=== PATIENT | male | born 1970 | race Two or more races ===

== ENCOUNTER 2024-06-29 10:42 | Outpatient (RCR) | payer MEDICAID, SELFPAY ==
--- NOTE | 2024-06-29 12:50 | PTNOTE_ITS ---
PT OP Initial Eval Patient Information Outpatient Physical Therapy Treatment Date: 06/29/24 Visit Reasons: CHRONIC LEFT SHOULDER PAIN Medical Diagnosis: [id number] Treatment Dx #1: Left Shoulder Pain Treatment Dx #2: Left Shoulder Mobility Deficits Start of Care: 06/29/24 Date of Onset: 3 years ago Smoking Status Smoking Status: Never smoker Initial Assessment Subjective: Pt is a 54 y/o male reports of chronic left shoulder pain (09/10) ~ 3 years ago. Pt's past MRI showed severe tearing of the labrum. Pt has limitation with ADLs, lifting, chores, self care, cooking, cleaning, and performing recreational activities. Objective: Left Shoulder AROM: all motions are WFL with end range pain in all plane Left Shoulder MMTs: grossly 3-/5 Left Scapula MMTs: grossly 3-/5 Special Test (+) gallego's Assessment: Pt demonstrate left shoulder pain with mobility deficits leading to difficulty with ADLs. Pt will attempt physical therapy if pain persist Pt will be refer back to provider for further consultation. Short Term and Residential Goals 1) Increase left shoulder AROM WFL in 6 wks to be able to perform overhead motions 2) Decrease shoulder pain to 2/10 in 6 wks to be able to perform lifting activities 3) Increase left shoulder MMTs grossly 4-/5 in 6 wks to be able to perform recreational activities 4) Increase left scapula MMTs grossly to 4-/5 in 6 wks to be able to perform chores 5) Indep with HEP Treatment Plan 1) Manual Therapy 2) Therapeutic Activities 3) Therapeutic Exercises 4) Modalities (ice, heat) Frequency and Duration: 2 x wk for 6 wks Certification Dates: 06/29/24 to 09/28/24 Procedure Charges OP PT Eval Mod Complex 30 minutes: Yes
== END 2024-07-01 23:59 | disposition home or self-care (01) ==
LOC: CPTX 10:42
PROVIDERS: PCP Physician Assistant; Referring Provider Physician Assistant; Visit Provider Physician Assistant
DX: M25.512 Pain in left shoulder (principal); G89.29 Other chronic pain; S43.432D Superior glenoid labrum lesion of left shoulder, subsequent encounter; X58.XXXD Exposure to other specified factors, subsequent encounter
CPT/HCPCS: 97162

== ENCOUNTER 2024-07-23 08:30 | Outpatient (RCR) | payer MEDICAID, SELFPAY ==
--- NOTE | 2024-07-06 10:02 | PT.ODAYNRPT ---
PT Outpatient Daily Note OP Daily Note Outpatient Physical Therapy Treatment Date: 07/06/24 Visit Reasons: LEFT SHOULDER PAIN Subjective: Pt's shoulder feels the same and continues to catch with overhead motions. Objective: Please see flow chart for list of ther ex performed Assessment: pain with all exercises today. Post ice helped with soreness and pain Plan: Continue with PT Length of Time (minutes) of Treatment: 30 Minutes Procedure Charges Therapeutic Exercise 30 minutes: Yes
--- NOTE | 2024-07-10 09:57 | PT.ODAYNRPT ---
PT Outpatient Daily Note OP Daily Note Outpatient Physical Therapy Treatment Date: 07/10/24 Visit Reasons: LEFT SHOULDER PAIN Subjective: Pt's shoulder feels about the same and continues to have internal pain. Objective: Please see flow chart for list of ther ex performed Assessment: tolerate exercises with minimal pain; post ice helped with soreness Plan: Continue with PT Length of Time (minutes) of Treatment: 30 Minutes Procedure Charges Therapeutic Exercise 30 minutes: Yes
--- NOTE | 2024-07-20 09:51 | PT.ODAYNRPT ---
PT Outpatient Daily Note OP Daily Note Outpatient Physical Therapy Treatment Date: 07/20/24 Visit Reasons: LEFT SHOULDER PAIN Subjective: Pt's shoulder is getting worse. Pain is about the same no change in overall symptoms. Objective: Please see flow chart for list of ther ex performed Assessment: minimal change with pain post PT session Plan: Continue with PT Length of Time (minutes) of Treatment: 30 Minutes Procedure Charges Therapeutic Exercise 30 minutes: Yes
--- NOTE | 2024-07-23 09:06 | PT.ODS1RPT ---
PT OP Progress/Discharge Note Date of Service: 07/23/24 Progress Note/DC Note Progress Note/Discharge Note: DC Note Patient Information Visit Reasons: LEFT SHOULDER PAIN Medical Diagnosis: Left Shoulder Pain Treatment Dx #1: Left Shoulder Pain Service Continue Service or Discharge: Discharge Discharge Date: 07/23/24 Status Subjective: Pt's shoulder is about the same. No change in overall symptoms and continues to have pain. Pt has limitation with reaching, overhead motions, lifting, chores, and recreational activities. Objective: Left Shoulder AROM: all motions are WFL Left Shoulder MMTs: grossly 3+/5 Left Scapula MMTs: grossly 3+/5 Special Test (+) gallego's Assessment: Pt demonstrate functional left shoulder mobility and strength, however, no change in pain leading to difficulty with ADLs. Pt will no longer benefit from physical therapy due to plateau towards goals. Recommend patient to follow up with PCP for further consultation; thank you for your referrals. Plan: D/C home and follow up with PCP Recommend ortho consult Procedure Charges Therapeutic Exercise 30 minutes: Yes
== END 2024-08-01 23:59 | disposition home or self-care (01) ==
LOC: CPTX 08:30
PROVIDERS: PCP Physician Assistant; Referring Provider Physician Assistant; Visit Provider Physician Assistant
DX: M25.512 Pain in left shoulder (principal); G89.29 Other chronic pain; S43.402D Unspecified sprain of left shoulder joint, subsequent encounter; X58.XXXD Exposure to other specified factors, subsequent encounter
CPT/HCPCS: 97110

== ENCOUNTER → 2024-12-28 | Outpatient (CLI) | payer MEDICAID, SELFPAY ==
--- NOTE | 2024-12-28 16:30 | XR_ITS ---
MRI shoulder, left, without contrast. Date and time: December 28, 2024, 1800 hours INDICATIONS: Left shoulder pain 3 years joint clicking and stiffness decreased range of motion 35% abduction Technique: Multiple axial, sagittal and coronal sections of the shoulder have been obtained. Siemens high-resolution 1.5 Kristen MRI scanner is utilized. Axial fat-suppressed sections, TR 2350, TE 18 T2-weighted coronal fat-saturated images, TR 3500, TE 7100 T1-weighted coronal images, TR 500, TE 15 T2-weighted sagittal fat-saturated images, TR 3500, TE 57 T1-weighted sagittal sections, TR 504, TE 13. Findings: Supraspinatus tendon insertion is intact. Infraspinatus tendon insertion is intact. Subscapularis insertion is intact. Subscapularis bursa is small. Long head of the biceps is in the bicipital groove. Partial tear of the biceps superior labral anchor is seen. Retraction of the musculotendinous junction of the rotator cuff is not seen. Tendinosis pattern is moderate. Distance between the acromium and humeral head is 6.8 mm Atrophy of the supraspinatus muscle is moderate. Atrophy of the infraspinatus muscle is mild. Sagittal sections demonstrate a horizontal acromion. Acromioclavicular joint demonstrates moderate osteoarthritis . Osacromiale is not identified. Anterior labral tears 13 mm ossified joint body in the glenohumeral joint space. Bony glenoid fossa on the sagittal sections does not demonstrate osseous defect. Occult fracture or area of avascular necrosis is not seen. Acromioclavicular joint separation is not visible. 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
== END | disposition home or self-care (01) ==
LOC: SMRI 17:00
PROVIDERS: PCP Physician Assistant; Referring Provider Physician Assistant; Visit Provider Physician Assistant
DX: S46.212A Strain of muscle, fascia and tendon of other parts of biceps, left arm, initial encounter (principal); S43.432A Superior glenoid labrum lesion of left shoulder, initial encounter; X58.XXXA Exposure to other specified factors, initial encounter; M19.012 Primary osteoarthritis, left shoulder
CPT/HCPCS: 73221